=== PATIENT | female | born 1960 | race American Indian/Alaskan Native ===

== ENCOUNTER 2019-10-15 21:00 | Observation (INO) | payer MEDICARE ==
--- NOTE | 2019-10-15 21:27 | Emergency Department Report ---
ED General Adult HPI - General Chief complaint: Medical Clearance Stated complaint: DEFRIBRILLATOR ALERT Time Seen by Provider: 10/15/19 21:25 Source: patient, RN notes reviewed, old records reviewed Mode of arrival: Stretcher Limitations: Physical Limitation - History of Present Illness Initial comments: Primary care Dr.: Dr Paz Oncology: Dr Hudson Cardiology: Dr Burns/ Fior Past medical history, ICD, [employer] device, A. fib, on anticoagulation, history of metastatic ovarian cancer, left lower quadrant colostomy, not started chemotherapy or radiation as of yet. The patient is a 59-year-old female. The patient is not known to this provider previously. She presents to the ER with a complaint of her ICD going off. She reports nontraumatic left-sided shoulder pain. Patient admitted to [facility] last week for ICD going off and "fluid in my lungs", status post left- sided thoracic centesis. She's been having left-sided shoulder pain since that procedure. She otherwise endorses compliant with her medications. She denies chest pain at this time. -: Sudden Severity scale (0 -10): 0 Consistency: now resolved Improves with: none Worsens with: none - Related Data Home Medications Medication Instructions Recorded Confirmed Last Taken Oxycodone HCl [oxyCODONE] 10 mg PO Q8H PRN 10/16/19 10/16/19 Unknown Previous Rx's Medication Instructions Recorded Last Taken Type Acetaminophen [Acetaminophen TAB] 2 tab PO Q4H PRN #15 tablet 10/16/19 Unknown Rx Aspirin [Aspirin BABY CHEW TAB] 81 mg PO QDAY #30 tab 10/16/19 Unknown Rx AtorvaSTATin [Lipitor] 20 mg PO QHS #30 tab 10/16/19 Unknown Rx Furosemide [Lasix TAB] 20 mg PO DAILY #30 tab 10/16/19 Unknown Rx ISOSORBIDE MONOnitrate [Imdur ER] 30 mg PO DAILY #30 tab 10/16/19 Unknown Rx Levothyroxine [Synthroid] 100 mcg PO QAM #30 tab 10/16/19 Unknown Rx Pantoprazole [Protonix TAB] 40 mg PO QDAY #30 tab 10/16/19 Unknown Rx Rivaroxaban [Xarelto] 20 mg PO DAILY #30 tab 10/16/19 Unknown Rx Sotalol HCl [Sotalol] 120 tab PO Q12H #60 10/16/19 Unknown Rx hydrALAZINE [Apresoline TAB] 25 mg PO TID #90 tab 10/16/19 Unknown Rx Allergies Allergy/AdvReac Type Severity Reaction Status Date / Time hydrochlorothiazide Allergy Anaphylaxis Verified 10/16/19 00:24 [From Maxzide] latex Allergy Rash Verified 10/16/19 00:23 lisinopril Allergy Angioedema Verified 10/16/19 00:23 nifedipine [From Procardia] Allergy Anaphylaxis Verified 10/16/19 00:23 triamterene [From Maxzide] Allergy Anaphylaxis Verified 10/16/19 00:24 ED Review of Systems ROS: Stated complaint: DEFRIBRILLATOR ALERT Other details as noted in HPI Constitutional: malaise. 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 - Medications Home Medications: Home Medications Medication Instructions Recorded Confirmed Last Taken Type Acetaminophen [Acetaminophen TAB] 2 tab PO Q4H PRN #15 tablet 10/16/19 Unknown Rx Aspirin [Aspirin BABY CHEW TAB] 81 mg PO QDAY #30 tab 10/16/19 10/16/19 Unknown Rx AtorvaSTATin [Lipitor] 20 mg PO QHS #30 tab 10/16/19 10/16/19 Unknown Rx Furosemide [Lasix TAB] 20 mg PO DAILY #30 tab 10/16/19 10/16/19 Unknown Rx ISOSORBIDE MONOnitrate [Imdur ER] 30 mg PO DAILY #30 tab 10/16/19 10/16/19 Unknown Rx Levothyroxine [Synthroid] 100 mcg PO QAM #30 tab 10/16/19 10/16/19 Unknown Rx Oxycodone HCl [oxyCODONE] 10 mg PO Q8H PRN 12/17/19 12/17/19 Unknown History Pantoprazole [Protonix TAB] 40 mg PO QDAY #30 tab 10/16/19 10/16/19 Unknown Rx Rivaroxaban [Xarelto] 20 mg PO DAILY #30 tab 10/16/19 10/16/19 Unknown Rx Sotalol HCl [Sotalol] 120 tab PO Q12H #60 10/16/19 Unknown Rx hydrALAZINE [Apresoline TAB] 25 mg PO TID #90 tab 10/16/19 10/16/19 Unknown Rx ED Physical Exam - General Limitations: Physical Limitation General appearance: alert, in no apparent distress, obese - Head Head exam: Present: atraumatic, normocephalic - Eye Eye exam: Present: normal appearance, EOMI. Absent: nystagmus - ENT ENT exam: Present: normal exam, normal orophraynx, mucous membranes moist, normal external ear exam - Neck Neck exam: Present: normal inspection, full ROM. Absent: tenderness, meningismus - Respiratory Respiratory exam: Present: decreased breath sounds, other (left-sided thoracic procedure site without redness, pus or streaking. Chaperoned by nurse Camilo Hunter). Absent: respiratory distress, rales, rhonchi, stridor - Cardiovascular Cardiovascular Exam: Present: regular rate, normal rhythm, normal heart sounds. Absent: bradycardia, tachycardia, irregular rhythm, systolic murmur, diastolic murmur, rubs, gallop - GI/Abdominal GI/Abdominal exam: Present: soft. Absent: distended, tenderness, guarding, rebound, rigid, pulsatile mass - Extremities Exam Extremities exam: Present: normal inspection, full ROM, other (2+ pulses noted in the bilateral upper and lower extremities. There is no palpable cord. negative Homans sign. Muscular compartments are soft. The pelvis is stable.). Absent: calf tenderness - Back Exam Back exam: Present: normal inspection, full ROM. Absent: CVA tenderness (R), CVA tenderness (L), paraspinal tenderness, vertebral tenderness - Neurological Exam Neurological exam: Present: alert, other (there is no facial droop. The tongue is midline. The extraocular movements are intact bilaterally. Speaking in full sentences. Minimal elevation of the base of the tongue. There is 5 out of 5 strength in the bilateral upper and lower extremities, and sensation is intact to light touch in the bilateral upper and lower extremities. Appropriate insight.) - Psychiatric Psychiatric exam: Present: flat affect - Skin Skin exam: Present: warm, dry, intact, normal color. Absent: rash ED Course Vital Signs 10/15/19 21:18 Temperature 98.3 F Pulse Rate 94 H Respiratory 24 Rate Blood Pressure 143/80 [Right] O2 Sat by Pulse 99 Oximetry - Reevaluation(s) Reevaluation #1: 10/15/19 23:39 Not currently tachycardic, tachypneic or hypoxic, on systemic anticoagulation, do not have suspicion for pulmonary embolism at this time. Reevaluation #2: 10/15/19 23:40 Dr Charanjit Henry to admit ED Medical Decision Making - Lab Data Result diagrams: 10/16/19 05:13 10/16/19 05:13 Vital Signs 10/15/19 21:18 Temperature 98.3 F Pulse Rate 94 H Respiratory 24 Rate Blood Pressure 143/80 [Right] O2 Sat by Pulse 99 Oximetry Lab Results 10/15/19 10/15/19 10/15/19 Range/Units 21:46 21:46 21:46 WBC 8.6 (4.5-11.0) K/mm3 RBC 3.79 (3.65-5.03) M/mm3 Hgb 9.0 L (10.1-14.3) gm/dl Hct 28.4 L (30.3-42.9) % MCV 75 L (79-97) fl MCH 24 L (28-32) pg MCHC 32 (30-34) % RDW 20.8 H (13.2-15.2) % Plt Count 322 (140-440) K/mm3 PT 28.2 H (12.2-14.9) Sec. INR 2.58 H (0.87-1.13) Sodium 138 (137-145) mmol/L Potassium 3.7 (3.6-5.0) mmol/L Chloride 99.1 (98-107) mmol/L Carbon Dioxide 22 (22-30) mmol/L Anion Gap 21 mmol/L BUN 13 (7-17) mg/dL Creatinine 1.0 (0.7-1.2) mg/dL Estimated GFR > 60 ml/min BUN/Creatinine Ratio 13 % Glucose 197 H (65-100) mg/dL Calcium 8.6 (8.4-10.2) mg/dL Magnesium 1.80 (1.7-2.3) mg/dL Total Creatine Kinase 27 L (30-135) units/L Troponin T (0.00-0.029) ng/mL TSH (0.270-4.200) mlU/mL 10/15/19 10/15/19 Range/Units 21:46 21:58 WBC (4.5-11.0) K/mm3 RBC (3.65-5.03) M/mm3 Hgb (10.1-14.3) gm/dl Hct (30.3-42.9) % MCV (79-97) fl MCH (28-32) pg MCHC (30-34) % RDW (13.2-15.2) % Plt Count (140-440) K/mm3 PT (12.2-14.9) Sec. INR (0.87-1.13) Sodium (137-145) mmol/L Potassium (3.6-5.0) mmol/L Chloride (98-107) mmol/L Carbon Dioxide (22-30) mmol/L Anion Gap mmol/L BUN (7-17) mg/dL Creatinine (0.7-1.2) mg/dL Estimated GFR ml/min BUN/Creatinine Ratio % Glucose (65-100) mg/dL Calcium (8.4-10.2) mg/dL Magnesium (1.7-2.3) mg/dL Total Creatine Kinase (30-135) units/L Troponin T < 0.010 (0.00-0.029) ng/mL TSH 0.536 (0.270-4.200) mlU/mL - EKG Data -: EKG Interpreted by Al - EKG Data 10/15/19 23:35 The EKG shows a sinus rhythm, 94 bpm, left axis deviation, left ventricular hypertrophy, low voltage, Q waves noted in V3 through V6, Q waves noted in the inferior leads, nonspecific ST abnormality. There is no prior EKG available for comparison. The EKG is not consistent with ST elevation myocardial infarction. - Radiology Data Radiology results: report reviewed, image reviewed There is poor inspiratory effort. There is a left-sided AICD device noted. There is elevation the bilateral hemidiaphragms. No obvious lung pathology noted. Status post sternotomy - Medical Decision Making Differential diagnosis, including but not limited to: V. tach, V. fib, arrhythmia, electrolyte derangement, congestive heart failure Assessment and plan: 59-year-old female with complaint of defibrillator going off, only having left-sided shoulder pain, with abnormal EKG without prior for comparison. Her EKG was transmitted to her artificial limb maker, Dr. Burns, who reviewed the EKG and we both agree that the EKG does not meet criteria for activation of catheterization lab emergently. Recommends admission for observation. Indicates his group will follow in consultation. Contacted [employer], spoke to the client relations representative ezequiel Escobar the morning to interrogate his device. At this time, the patient isn't a sinus rhythm. Laboratory studies reviewed and appreciated. Discussed plan of care with the patient who verbalized understanding and was amenable to this plan of care. Hospital physician is paged to arrange admission. Critical care attestation.: If time is entered above; I have spent that time in minutes in the direct care of this critically ill patient, excluding procedure time. ED Disposition Clinical Impression: ICD (implantable cardioverter-defibrillator) discharge, Abnormal EKG Disposition: [id number] OP ADMIT IP TO THIS HOSP Is pt being admited?: Yes Condition: Stable
[2019-10-15 22:06] LABS: Hematocrit 28.4 % (30.3-42.9); Mean Corpuscular HGB Conc 32 % (30-34); Mean Corpuscular Volume 75 fl (79-97); Platelet Count 322 K/mm3 (140-440); Red Blood Count 3.79 M/mm3 (3.65-5.03)
[2019-10-15 22:17] LABS: INR 2.58 (0.87-1.13)
[2019-10-15 22:21] LABS: BUN/Creatinine Ratio 13; Blood Urea Nitrogen 13 mg/dL (7-17); Calcium 8.6 mg/dL (8.4-10.2); Hemolysis Index 9
[2019-10-15 22:22] LABS: Red Cell Distribution Width 20.8 % (13.2-15.2)
--- NOTE | 2019-10-15 23:56 | History and Physical Report ---
History of Present Illness Date of examination: 10/15/19 History of present illness: 59-year-old woman with a history of hypertension, CVA, coronary artery disease, atrial fibrillation, hypothyroidism metastatic ovarian cancer comes emergency room with complaints of feeling lightheaded for approximately 2 minutes, shortly after which her AICD fired once. She came to the emergency room for further evaluation. The patient was diagnosed with metastatic ovarian cancer on August 29, status post surgery, scheduled for chemotherapy. [facility] was contacted, they will see the patient in the morning. Patient is being admitted for AICD discharge Review of systems Constitutional: no weight loss, chills, fever Ears, eyes, nose, mouth and throat: no nasal congestion, no nasal discharge, no sinus pressure, no vision change, no red eye. Neck: No neck pain or rigidity. Cardiovascular: no palpitations, chest pain Respiratory: no cough, shortness of breath Gastrointestinal: no hematochezia, abdominal pain Genitourinary : no frequency , no hematuria Musculoskeletal: no joint swelling or muscle ache Integumentary: no rash, no pruritis Neurological: no parathesias, no focal weakness Endocrine: no cold or heat intolerance, no polyuria or polydipsia Hematologic/Lymphatic: no easy bruising, no easy bleeding, no gland swelling Allergic/Immunologic: no urticaria, no angioedema. PAST MEDICAL HISTORY: Hypertension, CVA, coronary artery disease, atrial fibrillation, hypothyroidism metastatic ovarian cancer PAST SURGICAL HISTORY: PUJA/BSO, partial resection of the colon, liver, colostomy, AICD SOCIAL HISTORY: Denies alcohol, drugs, tobacco FAMILY HISTORY: Hypertension Medications and Allergies Allergies Allergy/AdvReac Type Severity Reaction Status Date / Time hydrochlorothiazide Allergy Anaphylaxis Verified 10/16/19 00:24 [From Maxzide] latex Allergy Rash Verified 10/16/19 00:23 lisinopril Allergy Angioedema Verified 10/16/19 00:23 nifedipine [From Procardia] Allergy Anaphylaxis Verified 10/16/19 00:23 triamterene [From Maxzide] Allergy Anaphylaxis Verified 10/16/19 00:24 Home Medications Medication Instructions Recorded Confirmed Last Taken Type Aspirin [Aspirin BABY CHEW TAB] 81 mg PO QDAY 10/16/19 10/16/19 Unknown History AtorvaSTATin [Lipitor] 20 mg PO QHS 10/16/19 10/16/19 Unknown History Furosemide [Lasix TAB] 20 mg PO DAILY 10/16/19 10/16/19 Unknown History ISOSORBIDE MONOnitrate [Imdur ER] 30 mg PO DAILY 10/16/19 10/16/19 Unknown History Levothyroxine [Synthroid] 100 mcg PO QAM 10/16/19 10/16/19 Unknown History Oxycodone HCl [oxyCODONE] 10 mg PO Q8H PRN 10/16/19 10/16/19 Unknown History Pantoprazole [Protonix] 40 mg PO QDAY 10/16/19 10/16/19 Unknown History Rivaroxaban [Xarelto] 20 mg PO DAILY 10/16/19 10/16/19 Unknown History Sotalol HCl [Sotalol] 120 mg pe PO QAM 10/16/19 10/16/19 Unknown History hydrALAZINE [Apresoline] 25 mg PO Q8HR 10/16/19 10/16/19 Unknown History sotaloL [Betapace] 80 mg PO QHS 10/16/19 10/16/19 Unknown History Exam - Physical Exam Narrative exam: General Apperance: The patient lying in bed, breathing comfortable HEENT: Normocephalic, atraumatic. Pupils equally round and reactive to light, EOMI, Left subconjunctival hemorrhage no sclericterus or JVD or thyromegaly or nodule. , no carotid bruit, mucous membranes moist, no exudate or erythema Heart: S1-S2, regular is rhythm Lungs: clear breathing comfortable Abdomen: Positive bowel sounds, soft, colostomy bag, nontender, nondistended, no organomegaly Extremities: amputation of the left forearm, No edema cyanosis clubbing Skin: no rash, nodule, warm and dry Neuro: cranial nerves 2-12 intact, speech is fluent, motor/sensory intact - Constitutional Vitals: Temp Pulse Resp BP Pulse Ox 98.3 F 94 H 24 143/80 99 10/15/19 21:18 10/15/19 21:18 10/15/19 21:18 10/15/19 21:18 10/15/19 21:18 Results - Labs CBC & Chem 7: 10/15/19 21:46 10/15/19 21:46 Labs: Abnormal lab results 10/15/19 10/15/19 10/15/19 Range/Units 21:46 21:46 21:46 Hgb 9.0 L (10.1-14.3) gm/dl Hct 28.4 L (30.3-42.9) % MCV 75 L (79-97) fl MCH 24 L (28-32) pg RDW 20.8 H (13.2-15.2) % PT 28.2 H (12.2-14.9) Sec. INR 2.58 H (0.87-1.13) Glucose 197 H (65-100) mg/dL Total Creatine Kinase 27 L (30-135) units/L Assessment and Plan Assessment AICD discharge/CAD Check cardiac enzymes, cardiology was consulted see the patient [facility] will see the patient in the morning Atrial fibrillation Continue sotalol, Xarelto Hypothyroidism Continue Synthroid Metastatic ovarian cancer Outpatient follow-up with her oncologist DVT prophylaxis
--- NOTE | 2019-10-16 00:14 | History and Physical Report ---
History of Present Illness Date of examination: 10/15/19 Exam - Constitutional Vitals: Temp Pulse Resp BP Pulse Ox 98.3 F 94 H 24 143/80 99 10/15/19 21:18 10/15/19 21:18 10/15/19 21:18 10/15/19 21:18 10/15/19 21:18 Results - Labs CBC & Chem 7: 10/15/19 21:46 10/15/19 21:46 Labs: Abnormal lab results 10/15/19 10/15/19 10/15/19 Range/Units 21:46 21:46 21:46 Hgb 9.0 L (10.1-14.3) gm/dl Hct 28.4 L (30.3-42.9) % MCV 75 L (79-97) fl MCH 24 L (28-32) pg RDW 20.8 H (13.2-15.2) % PT 28.2 H (12.2-14.9) Sec. INR 2.58 H (0.87-1.13) Glucose 197 H (65-100) mg/dL Total Creatine Kinase 27 L (30-135) units/L
[2019-10-16] MEDS ORDERED: oxyCODONE /ACETAMINOPHEN 5-325MG TAB PO PRN (00:30)
[2019-10-16] MEDS ORDERED: ONDANSETRON 4 MG/2 ML INJ IV PRN (00:30)
[2019-10-16] MEDS ORDERED: ACETAMINOPHEN 325 MG TAB PO PRN (00:30)
[2019-10-16 01:26] LABS: Creatine Kinase MB 1.2 ng/mL (0.0-4.0)
[2019-10-16] MEDS ORDERED: oxyCODONE 5 MG TAB PO PRN (05:08)
[2019-10-16] MEDS ORDERED: LEVOTHYROXINE 100 MCG TAB PO SCH (06:00)
[2019-10-16] MEDS: hydrALAZINE 25 MG TAB PO SCH ×2 (06:24→16:37)
[2019-10-16 07:01] LABS: BUN/Creatinine Ratio 16; Blood Urea Nitrogen 14 mg/dL (7-17); Calcium 8.4 mg/dL (8.4-10.2); Hemolysis Index 13
[2019-10-16 07:02] LABS: Creatine Kinase MB 1.2 ng/mL (0.0-4.0)
[2019-10-16 09:34] LABS: Eosinophils # (Auto) 0.2 K/mm3 (0.0-0.4); Eosinophils % (Auto) 2.6 % (0.0-4.3); Monocytes # (Auto) 0.7 K/mm3 (0.0-0.8); Monocytes % (Auto) 11.4 % (0.0-7.3)
[2019-10-16 09:48] LABS: Red Blood Count 3.41 M/mm3 (3.65-5.03)
[2019-10-16 09:49] LABS: Basophils % (Auto) 0.4 % (0.0-1.8); Hematocrit 25.3 % (30.3-42.9); Lymphocytes # (Auto) 1.7 K/mm3 (1.2-5.4); Lymphocytes % (Auto) 26.1 % (13.4-35.0); Mean Corpuscular HGB Conc 32 % (30-34); Mean Corpuscular Volume 74 fl (79-97); Platelet Count 290 K/mm3 (140-440); Red Cell Distribution Width 21.4 % (13.2-15.2)
[2019-10-16 09:56] VITALS: BP 131/79
[2019-10-16] MEDS ORDERED: RIVAROXABAN 20 MG TAB PO SCH (10:00)
[2019-10-16] MEDS ORDERED: PANTOPRAZOLE 40 MG TAB PO SCH (10:00)
[2019-10-16] MEDS ORDERED: FUROSEMIDE 20 MG TAB PO SCH (10:00)
[2019-10-16] MEDS ORDERED: ASPIRIN 81 MG TAB CHEW PO SCH (10:00)
--- NOTE | 2019-10-16 11:05 | Consultation ---
History of Present Illness Consult date: 10/16/19 Consult reason: other (ICD discharge) History of present illness: This is a 59-year old woman with multiple medical problems. She has a cardiac h istory of multivessel coronary artery disease with remote 3 vessel bypass grafting and ischemic cardiomyopathy. During a hospitalization at [facility] a month ago, she underwent a cardiac cath that reports patent CHAIDEZ to LAD, patent SVG to RCA but one occluded saphenous vein graft, ejection fraction 30-35%. Patient also has a history of paroxysmal atrial fibrillation, VT and has indwelling cardiac defibrillator ([employer]). She is not taking amiodarone due to history of hyperthyroidism. Instead she has been recommended sotalol 120mg in the morning and 80mg in the evening for suppression of arrhythmias. Patient is on Xarelto for oral anticoagulation. Patient is now admitted with ICD discharge. A device interrogation reveals appropriate therapy with ATP and 41J shock for VT. Patient admits compliance with sotalol. She denies chest pain, unusual shortness of breath and palpitations. Cardiac consultation has been requested. Medications and Allergies Allergies Allergy/AdvReac Type Severity Reaction Status Date / Time hydrochlorothiazide Allergy Anaphylaxis Verified 10/16/19 00:24 [From Maxzide] latex Allergy Rash Verified 10/16/19 00:23 lisinopril Allergy Angioedema Verified 10/16/19 00:23 nifedipine [From Procardia] Allergy Anaphylaxis Verified 10/16/19 00:23 triamterene [From Maxzide] Allergy Anaphylaxis Verified 10/16/19 00:24 Home Medications Medication Instructions Recorded Confirmed Last Taken Type Aspirin [Aspirin BABY CHEW TAB] 81 mg PO QDAY 10/16/19 10/16/19 Unknown History AtorvaSTATin [Lipitor] 20 mg PO QHS 10/16/19 10/16/19 Unknown History Furosemide [Lasix TAB] 20 mg PO DAILY 10/16/19 10/16/19 Unknown History ISOSORBIDE MONOnitrate [Imdur ER] 30 mg PO DAILY 10/16/19 10/16/19 Unknown History Levothyroxine [Synthroid] 100 mcg PO QAM 10/16/19 10/16/19 Unknown History Oxycodone HCl [oxyCODONE] 10 mg PO Q8H PRN 10/16/19 10/16/19 Unknown History Pantoprazole [Protonix] 40 mg PO QDAY 10/16/19 10/16/19 Unknown History Rivaroxaban [Xarelto] 20 mg PO DAILY 10/16/19 10/16/19 Unknown History Sotalol HCl [Sotalol] 120 mg pe PO QAM 10/16/19 10/16/19 Unknown History hydrALAZINE [Apresoline] 25 mg PO Q8HR 10/16/19 10/16/19 Unknown History sotaloL [Betapace] 80 mg PO QHS 10/16/19 10/16/19 Unknown History Active Meds: Active Medications Acetaminophen (Tylenol) 650 mg PO Q4H PRN PRN Reason: Pain MILD(1-3)/Fever >100.5/MERCER Aspirin (Baby Aspirin) 81 mg PO QDAY [facility] Last Admin: 10/16/19 09:55 Dose: 81 mg Documented by: Atorvastatin Calcium (Lipitor) 20 mg PO QHS [facility] Furosemide (Lasix) 20 mg PO DAILY [facility] Last Admin: 10/16/19 09:55 Dose: 20 mg Documented by: Hydralazine HCl (Apresoline) 25 mg PO Q8HR [facility] Last Admin: 10/16/19 06:24 Dose: 25 mg Documented by: Isosorbide Mononitrate (Imdur) 30 mg PO DAILY [facility] Last Admin: 10/16/19 09:55 Dose: 30 mg Documented by: Levothyroxine Sodium (Synthroid) 100 mcg PO QAM@0600 [facility] Last Admin: 10/16/19 06:24 Dose: 100 mcg Documented by: Ondansetron HCl (Zofran) 4 mg IV Q8H PRN PRN Reason: Nausea And Vomiting Oxycodone/Acetaminophen (Percocet 5/325) 1 tab PO Q6H PRN PRN Reason: Pain, Moderate (4-6) Pantoprazole Sodium (Protonix) 40 mg PO QDAY [facility] Last Admin: 10/16/19 09:55 Dose: 40 mg Documented by: Rivaroxaban (Xarelto) 20 mg PO DAILY [facility]; Protocol Last Admin: 10/16/19 09:55 Dose: 20 mg Documented by: Sodium Chloride (Sodium Chloride Flush Syringe 10 Ml) 10 ml IV BID [facility] Last Admin: 10/16/19 09:54 Dose: 10 ml Documented by: Sodium Chloride (Sodium Chloride Flush Syringe 10 Ml) 10 ml IV PRN PRN PRN Reason: LINE FLUSH Sotalol HCl (Betapace) 80 mg PO QHS CAS Sotalol HCl (Betapace) 120 mg PO QAM CAS Physical Examination Vital Signs Temp Pulse Resp BP Pulse Ox 98.3 F 94 H 24 143/80 99 10/15/19 21:18 10/15/19 21:18 10/15/19 21:18 10/15/19 21:18 10/15/19 21:18 General appearance: no acute distress HEENT: Positive: PERRL Neck: Positive: neck supple Cardiac: Positive: Reg Rate and Rhythm Lungs: Positive: Decreased Breath Sounds Results 10/16/19 05:13 10/16/19 05:13 Cardiac Enzymes 10/16/19 10/16/19 Range/Units 00:50 05:13 CK-MB (CK-2) 1.2 1.2 (0.0-4.0) ng/mL Coagulation 10/15/19 Range/Units 21:46 PT 28.2 H (12.2-14.9) Sec. INR 2.58 H (0.87-1.13) CBC 10/15/19 10/16/19 Range/Units 21:46 05:13 WBC 8.6 6.4 (4.5-11.0) K/mm3 RBC 3.79 3.41 L (3.65-5.03) M/mm3 Hgb 9.0 L 8.0 L (10.1-14.3) gm/dl Hct 28.4 L 25.3 L (30.3-42.9) % Plt Count 322 290 (140-440) K/mm3 Lymph # 1.7 (1.2-5.4) K/mm3 Hendricks # 0.7 (0.0-0.8) K/mm3 Eos # 0.2 (0.0-0.4) K/mm3 Baso # 0.0 (0.0-0.1) K/mm3 Comprehensive Metabolic Panel 10/15/19 10/16/19 Range/Units 21:46 05:13 Sodium 138 141 (137-145) mmol/L Potassium 3.7 3.8 (3.6-5.0) mmol/L Chloride 99.1 102.5 (98-107) mmol/L Carbon Dioxide 22 24 (22-30) mmol/L BUN 13 14 (7-17) mg/dL Creatinine 1.0 0.9 (0.7-1.2) mg/dL Glucose 197 H 120 H (65-100) mg/dL Calcium 8.6 8.4 (8.4-10.2) mg/dL Assessment and Plan AICD discharge device interrogation reveals appropriate therapy with ATP and 41J shock for VT Hx of VT not on amiodarone s/t hyperthyroidism on sotalol 120mg qam and 80mg every evening as an outpatient per pt Hx of paroxysmal Afib on Xarelto for anticoagulation Hx of ischemic cardiomyopathy, EF 32% by echo 08/2019 at [facility] Hx of CAD with remote CABG [facility] 10/04/19 at [facility] Harjinder: patent CHAIDEZ to LAD, patient SVG to RCA Ovarian cancer, newly diagnosed Htn DM
--- NOTE | 2019-10-16 14:35 | Discharge Summary ---
Providers - Providers Date of Admission: 10/15/19 23:55 Date of discharge: 10/16/19 Attending physician: GREG DEAN 10/15/19 21:43 Consult to Physician [CONS] Urgent Comment: Consulting Provider: RENAN GALVEZ Physician Instructions: Reason For Exam: DEFIB WENT OFF ABNORAL EKG [facility] Condition: Stable Hospital course: Patient is a 59-year-old woman with a history of hypertension, CVA, coronary artery disease, atrial fibrillation, hypothyroidism and metastatic ovarian cancer who presented to [facility] ED with lightheadedness for approximately 2 minutes, shortly after which her AICD fired once. She came to the emergency room for further evaluation. The patient was diagnosed with metastatic ovarian cancer on August 29, status post surgery, scheduled for chemotherapy. [facility] was contacted and discovered VT shocked appropriately. Discharge Diagnoses: Ventricular tachycardia s/p ICD shock: Cardiology increased the sotalol to 120mg bid, unable to use Amiodarone due to Thyroid disease per Cardiology AICD discharge/CAD Atrial fibrillation: Continue sotalol, A/C Hypothyroidism: Continue Synthroid Metastatic ovarian cancer, newly diagnosis: Outpatient follow-up with her oncologist Hx of ischemic cardiomyopathy, EF 32% by echo 08/2019 at [place] Hx of CAD with remote CABG, C 10/04/19 at [place] Harjinder: patent CHAIDEZ to LAD, patient SVG to RCA Hx of Htn Hx of DM type 2 Disposition: DC-01 TO HOME OR SELFCARE Time spent for discharge: 34 minutes Core Measure Documentation - Palliative Care Palliative Care/ Comfort Measures: Not Applicable - Core Measures Any of the following diagnoses?: none - VTE Discharge Requirements Deep Vein Thrombosis/Pulmonary Embolism Present on Admission: No Has pt received <5 days of overlap therapy or INR<2.0: No Anticoagulant overlap therapy prescribed at discharge: No Contraindication No Overlap Therapy order at DC: Not Indicated Exam - Physical Exam Narrative exam: Gen: WDWN, NAD, Awake, Alert, Orientated HEENT: NCAT, EOMI, PERRL, OP Clear Neck: supple, no adenopathy, no thyromegaly, no JVD CVS/Heart: irregular irregular, normal S1S2, pulses present bilaterally Chest/Lungs: CTA B, Symmetrical chest expansion, good air entry bilaterally GI/Abdomen: soft, NTND, good bowel sounds, no guarding or rebound /Bladder: no suprapubic tenderness, no CVA or paraspinal tenderness Extermity/Skin: no c/c/e, no obvious rash MSK: FROM x 4 Neuro: CN 2-12 grossly intact, no new focal deficits Psych: calm - Constitutional Vitals: Temp Pulse Resp BP Pulse Ox 98.3 F 83 17 131/79 98 10/15/19 21:18 10/16/19 13:00 10/16/19 13:32 10/16/19 09:55 10/16/19 10:00 Plan Activity: other (no strenous activity unless cleared by Cardiology) Diet: low salt, diabetic Special Instructions: record daily BP diary, record blood sugar diary (daily) Follow up with: JERMAIN ENGELSTRATHMERE MD BRIDGER [Primary Care Provider] - 3-5 Days DORIS ANDERSON MD [Staff Physician] - 10/23/19 11:00 am Prescriptions: Sotalol HCl [Sotalol] 120 tab PO Q12H #60
--- NOTE | 2019-10-19 13:31 | XRay Report ---
CHEST 1 VIEW 10/15/2019 9:26 PM INDICATION / CLINICAL INFORMATION: Defibrillator activation. COMPARISON: 05/02/13 FINDINGS: SUPPORT DEVICES: None. HEART / MEDIASTINUM: Heart is mildly enlarged but stable. Median sternotomy wires and CABG clips are unchanged. Left-sided AICD is unchanged. LUNGS / PLEURA: Moderate elevation of the right hemidiaphragm without obvious intrathoracic cause. No acute air space or interstitial disease. No pneumothorax. ADDITIONAL FINDINGS: No significant additional findings. IMPRESSION: 1. No acute findings. 2. Elevation of the right hemidiaphragm. Signer Name: Carlos Hinojosa MD Signed: 10/19/2019 1:27 PM Workstation Name: [id number]
== END 2019-10-16 16:38 | disposition home or self-care (01) ==
LOC: ED 21:00 → 4A 23:55
PROVIDERS: ADMIT Internal Medicine; ATTEND Internal Medicine
DX: Z45.02 Encounter for adjustment and management of automatic implantable cardiac defibrillator (principal); R94.31 Abnormal electrocardiogram [ECG] [EKG]; I48.0 Paroxysmal atrial fibrillation; I25.5 Ischemic cardiomyopathy; I10 Essential (primary) hypertension; E11.9 Type 2 diabetes mellitus without complications; E03.9 Hypothyroidism, unspecified; I25.10 Atherosclerotic heart disease of native coronary artery without angina pectoris; C79.60 Secondary malignant neoplasm of unspecified ovary; Z86.73 Personal history of transient ischemic attack (TIA), and cerebral infarction without residual deficits
CPT/HCPCS: 36415; 71045; 80048; 82550; 82553; 83735; 84443; 84484; 85025; 85027; 85610; 93005; 93010; 94760; 99284; G0378